=== PATIENT | female | born 1990 | race Caucasian/White ===

== ENCOUNTER 2017-07-26 12:44 | Outpatient (CLI) | END 2017-07-26 17:45 | disposition home or self-care (01) ==

== ENCOUNTER 2017-08-13 18:12 | Inpatient (IN) | END 2017-08-15 17:44 | disposition home or self-care (01) | DRG 775 ==

== ENCOUNTER 2017-11-29 12:45 | Emergency (ER) | END 2017-11-29 16:16 | disposition home or self-care (01) ==